=== PATIENT | female | born 1990 | race Caucasian/White ===

== ENCOUNTER 2018-08-29 03:06 | Inpatient (IN) ==
[2018-08-29] MEDS ORDERED: D5 NS 1000 ML 1,000 ML IV ONE (03:08)
[2018-08-29] MEDS ORDERED: D5 1/2 NS 1000 ML 1,000 ML IV SCH ×2 (03:08→04:00)
[2018-08-29] MEDS ORDERED: NUBAIN INJ 10 ONE (03:29)
[2018-08-29] MEDS ORDERED: NUBAIN INJ 10 IVP ONE (03:29)
[2018-08-29 03:30] LABS: BASOPHILS # (AUTO) 0.2 X10^3/uL (0.0-0.1); BASOPHILS % (AUTO) 1.2 % (0.2-1.0); EOSINOPHILS # (AUTO) 0.2 x10^3/uL (0.0-0.2); EOSINOPHILS % (AUTO) 1.2 % (0.9-2.9); HEMATOCRIT 38.5 % (36.0-47.0); HEMOGLOBIN 13.3 g/dL (12.0-16.0); LYMPHOCYTES # (AUTO) 3.5 X10^3/uL (1.3-2.9); LYMPHOCYTES % (AUTO) 19.2 % (21.0-51.0); MEAN CORPUSCULAR HEMOGLOBIN 31.9 pg (27.0-34.0); MEAN CORPUSCULAR HGB CONC 34.6 g/dL (33.0-35.0); MEAN CORPUSCULAR VOLUME 92.3 fL (80.0-100.0); MEAN PLATELET VOLUME 7.3 fL (7.4-11.0); MONOCYTES # (AUTO) 1.6 x10^3/uL (0.3-0.8); MONOCYTES % (AUTO) 9.1 % (0.0-13.0); NEUTROPHILS # (AUTO) 12.5 x10^3/uL (2.2-4.8); NEUTROPHILS % (AUTO) 69.3 % (42.0-75.0); PLATELET COUNT 385 X10^3/uL (150.0-450.0); RED BLOOD COUNT 4.17 X10^6/uL (3.5-5.4); RED CELL DISTRIBUTION WIDTH 13.1 % (11.6-16.5); WHITE BLOOD COUNT 18.1 X10^3/uL (3.6-10.0)
[2018-08-29 03:31] LABS: BLOOD UREA NITROGEN 5 mg/dL (7-18); CALCIUM 8.2 mg/dL (8.5-10.1); CARBON DIOXIDE 20.3 mmol/L (21-32); CHLORIDE 104 mmol/L (98-107); CREATININE 0.59 mg/dL (0.55-1.02); SODIUM 136 mmol/L (136-145); eGFR NON BLACK RACES > 60 (>60)
[2018-08-29 03:45] LABS: AMNISURE ROM TEST NO MEMBRANES RUPTURE (NO RUPTURE)
[2018-08-29] MEDS ORDERED: LR 1000 ML IV 1,000 ML IV ONE (03:46)
[2018-08-29] MEDS ORDERED: XYLOCAINE 1 % (PLAIN) ONE (03:46)
[2018-08-29] MEDS ORDERED: FENTANYL INJ 100 mcg ONE (03:46)
[2018-08-29] MEDS ORDERED: ADRENALINE CHL INJ ONE (03:47)
[2018-08-29] MEDS ORDERED: NAROPIN EPIDURAL 0.2% + FENTANYL 90MCG 60 ML EPI ONE (03:47)
[2018-08-29] MEDS ORDERED: D5 1/2 NS 1L W PITOCIN 20 UNITS/L 20 UNITS/1,000 ML BAG IV ONE (03:47)
[2018-08-29] MEDS ORDERED: PITOCIN ONE (03:47)
[2018-08-29] MEDS ORDERED: PHENERGAN INJ 25 MG IV PRN ×2 (03:51→06:13)
[2018-08-29] MEDS ORDERED: D5LR 1L W PITOCIN 10 UNITS/L 10 UNITS/1,000 ML BAG IV PRN (03:51)
[2018-08-29] MEDS ORDERED: NUBAIN INJ 200 MG VIAL MULTIDOSE IVP PRN (03:51)
[2018-08-29] MEDS ORDERED: REGLAN INJ 10 MG VIAL IVP PRN (03:51)
[2018-08-29] MEDS ORDERED: NS 100 ML IV 100 ML IV ONE (03:55)
[2018-08-29] MEDS ORDERED: AMPICILLIN VIAL 2 GRAM ONE (03:56)
[2018-08-29] MEDS ORDERED: AMPICILLIN VIAL 2 GRAM 2 G in NS 100 ML IV + SPIKE MINIBAG* 100 ML IV SCH (04:00)
[2018-08-29 04:03] VITALS: BMI 25.0
[2018-08-29] MEDS: D5 1/2 NS 1000 ML 1,000 ML with PITOCIN 20 UNITS IV SCH ×6 (05:48→22:18)
[2018-08-29 06:07] LABS: BILIRUBIN,URINE NEGATIVE (NEGATIVE); BLOOD/HEMOGLOBIN,URINE 1+ (NEGATIVE); GLUCOSE, URINE NEGATIVE (NEGATIVE); KETONES,URINE 2+ (NEGATIVE); LEUKOCYTE ESTERASE ,URINE 1+ (NEGATIVE); NITRITES,URINE NEGATIVE (NEGATIVE); PH,URINE 6.5 (5.0 - 8.0); PROTEIN,URINE 2+ (NEGATIVE); UROBILINOGEN,URINE NORMAL (NORMAL)
[2018-08-29 06:23] LABS: APPEARANCE,URINE CLEAR (CLEAR); BACTERIA,URINE TRACE /HPF (NEGATIVE); COLOR,URINE YELLOW (YELLOW); MUCUS,URINE MANY /HPF (NEGATIVE); SQUAMOUS EPITHELIAL CELL,UR MODERATE /HPF (NEGATIVE)
--- NOTE | 2018-08-29 07:09 | DR.OB ---
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 AROM with clear fluid. Head delivered over intact perineum. Nose and mouth bulb suctioned. No nuchal cord. Body delivered over intact perineum. Cord clamped x 2 and cut. handed to attendant. Cord sent for gases. Placenta delivered spontaneously / intact / 3 vessel cord. No CVX / vaginal / perineal tear. Viable male infant, VTX/OA, wt=4'14" and 9/9, stable to NBN. Mother stable to RR. DJI=[id number].
[2018-08-29] MEDS ORDERED: AMPICILLIN VIAL 1 GRAM 1 G in NS 50 ML IV + SPIKE MINIBAG* 50 ML IV SCH (08:00)
[2018-08-29] MEDS ORDERED: ADACEL or BOOSTRIX TDaP VACCINE IM ONE (08:15)
[2018-08-29] MEDS ORDERED: TUCKS MEDICATED PAD EXT PRN (08:15)
[2018-08-29] MEDS ORDERED: DERMOPLAST SPRAY TOP PRN (08:15)
[2018-08-29] MEDS ORDERED: AMBIEN PO PRN (08:15)
[2018-08-29] MEDS ORDERED: MILK OF MAGNESIA PO PRN (08:15)
[2018-08-29] MEDS: PRENATAL PLUS PO SCH (09:17)
[2018-08-29] MEDS: ZANTAC PO SCH ×2 (09:17→22:16)
[2018-08-29] MEDS: MOTRIN TAB 800 MG PO PRN (13:13)
[2018-08-29] MEDS ORDERED: TYLENOL 325 MG TAB PO PRN (20:13)
[2018-08-30 05:26] LABS: HEMATOCRIT 35.2 % (36.0-47.0)
[2018-08-30] MEDS: MOTRIN TAB 800 MG PO PRN (05:36)
[2018-08-30] MEDS: ZANTAC PO SCH ×2 (08:42→20:38)
[2018-08-30] MEDS: PRENATAL PLUS PO SCH (08:42)
[2018-08-30] MEDS ORDERED: REGLAN INJ 10 MG VIAL IVP PRN (14:19)
[2018-08-30] MEDS ORDERED: MOTRIN TAB 800 MG PO PRN (14:20)
[2018-08-30] MEDS ORDERED: DERMOPLAST SPRAY TOP PRN (14:20)
[2018-08-30] MEDS ORDERED: PHENERGAN INJ 25 MG IV PRN (14:20)
[2018-08-30] MEDS ORDERED: TUCKS MEDICATED PAD EXT PRN (14:21)
[2018-08-30] MEDS ORDERED: AMBIEN PO PRN (14:21)
[2018-08-30] MEDS ORDERED: MILK OF MAGNESIA PO PRN (14:21)
[2018-08-30] MEDS ORDERED: TYLENOL 325 MG TAB PO PRN (14:21)
[2018-08-31] MEDS ORDERED: DEPO-PROVERA CONTRACEPTIVE INJ IM ONE (06:55)
[2018-08-31] MEDS: ZANTAC PO SCH (08:42)
[2018-08-31] MEDS ORDERED: PRENATAL PLUS PO SCH (09:00)
[2018-08-31 10:36] VITALS: BP 104/57
== END 2018-08-31 11:11 | disposition home or self-care (01) | DRG 807 ==
LOC: ER 03:06 → LD 03:26 → MED/SURG 07:21
PROVIDERS: ADMIT Specialist; ATTEND Specialist
CPT/HCPCS: 36415; 59409; 80048; 80307; 81001; 84112; 85014; 85018; 85025; 86592; 86850; 86900; 86901; 90715; 96365; A4222; S0197; G0434; J0171; J0290; J1050; J2300; J2590; J3010; J3490; J7042; J7050; J7120; S5010

== ENCOUNTER 2019-01-30 02:56 | Inpatient (IN) ==
[2019-01-30 03:13] VITALS: BMI 20.9
[2019-01-30] MEDS ORDERED: TORADOL 60 MG VIAL IM ONE (03:31)
[2019-01-30] MEDS ORDERED: LEVSIN/MAALOX/LIDOC VISC PO ONE (03:31)
[2019-01-30] MEDS ORDERED: ZANTAC PO ONE (03:31)
[2019-01-30] MEDS ORDERED: TORADOL 60 MG VIAL ONE (03:36)
[2019-01-30] MEDS ORDERED: LEVSIN/MAALOX/LIDOC VISC ONE (03:37)
[2019-01-30] MEDS ORDERED: ZANTAC ONE (03:37)
[2019-01-30 03:45] LABS: BILIRUBIN,URINE NEGATIVE (NEGATIVE); BLOOD/HEMOGLOBIN,URINE NEGATIVE (NEGATIVE); GLUCOSE, URINE NEGATIVE (NEGATIVE); KETONES,URINE 2+ (NEGATIVE); LEUKOCYTE ESTERASE ,URINE 1+ (NEGATIVE); NITRITES,URINE NEGATIVE (NEGATIVE); PROTEIN,URINE NEGATIVE (NEGATIVE); UROBILINOGEN,URINE NORMAL (NORMAL)
[2019-01-30 03:49] LABS: APPEARANCE,URINE CLEAR (CLEAR); COLOR,URINE YELLOW (YELLOW)
[2019-01-30 03:49] LABS: BASOPHILS # (AUTO) 0.1 X10^3/uL (0.0-0.1); BASOPHILS % (AUTO) 0.3 % (0.2-1.0); EOSINOPHILS % (AUTO) 0.2 % (0.9-2.9); HEMATOCRIT 43.8 % (36.0-47.0); HEMOGLOBIN 14.9 g/dL (12.0-16.0); LYMPHOCYTES # (AUTO) 1.6 X10^3/uL (1.3-2.9); MEAN CORPUSCULAR HEMOGLOBIN 31.3 pg (27.0-34.0); MEAN CORPUSCULAR HGB CONC 33.9 g/dL (33.0-35.0); MEAN CORPUSCULAR VOLUME 92.3 fL (80.0-100.0); MEAN PLATELET VOLUME 7.5 fL (7.4-11.0); MONOCYTES # (AUTO) 0.9 x10^3/uL (0.3-0.8); MONOCYTES % (AUTO) 4.6 % (0.0-13.0); NEUTROPHILS # (AUTO) 17.1 x10^3/uL (2.2-4.8); NEUTROPHILS % (AUTO) 86.9 % (42.0-75.0); PLATELET COUNT 279 X10^3/uL (150.0-450.0); RED BLOOD COUNT 4.75 X10^6/uL (3.5-5.4); RED CELL DISTRIBUTION WIDTH 13.5 % (11.6-16.5); WHITE BLOOD COUNT 19.7 X10^3/uL (3.6-10.0)
[2019-01-30 03:50] LABS: BACTERIA,URINE NEGATIVE /HPF (NEGATIVE); RBC,URINE NONE SEEN /HPF (NONE SEEN); SQUAMOUS EPITHELIAL CELL,UR RARE /HPF (NEGATIVE)
[2019-01-30 03:53] LABS: AMYLASE 40 Units/L (25-115); LIPASE 78 Units/L (73-393)
--- NOTE | 2019-01-30 03:53 | ED.ABDFE ---
HPI Time Seen Time Seen by Provider: 01/30/19 03:22 PCP Primary Care Physician: UTE HPI Comment HPI Comment: 29YR OLD WHITE FEMALE WOKE UP 22:00 PM LAST NIGHT WITH SEVERE ABDOMINAL PAIN GOING INTO HER CHEST WITH NO ASSOCIATED SYMPTOMS. SHE TOOK LAXITIVE SUPP WITH BPM BUT NO RELIEF IN PAIN. SHE THOUGHT SHE MAY BE HAVING KIDNEY INFECTION. AFTER SEVERAL HOURS OF PAIN, SHE CAME TO ED 03:00AM TODAY. SHE DENIES FEVER, NAUSEA, VOMITING OR DIARRHEA OR CONSTIPATION. SHE 10/10 SEVERE STABBING PAIN. Complaint Doctors Chief Complaint Comments: ABDOMINAL PAIN Chief Complaint:: PT STATES" I WOKE UP WITH THIS PAIN IN MY STOMACH AND CHEST I THOUGHT IT WAS GAS, OR I WAS CONSTIPATED I TOOK A SUPPOSITORY I USED THE BATHROOM BUT THE PAIN IS STILL ALL OVER MY ABDOMEN AND IN MY CHEST" Reviewed Nurses Notes Review: Yes Source History Provided: Patient Mode of arrival Mode of Arrival: Ambulatory Timing Onset of Chief Complaint: 01/29/19 Came on: Suddenly Duration Since Onset: Constant Duration: Hours Location Location: Diffuse Severity Severity: Severe Quality Quality: Burning and Sharp Context History of: Abdominal surgery Modifying factors Worsening Factors: Position Improving Factors: Lying Still Associated signs and symptoms Associated Signs and Symptoms: None PMH PMH Past Medical History: Yes Past Surgical History: Yes Surgical History: Appendectomy, [employer] Surgery, Hysterectomy and Tonsillectomy Family History History of Family Medical Conditions: Yes Family Medical History: Hypertension Social History Does patient currently use any type of tobacco product: Yes Have you used tobacco products in the last 12 months: Yes Type of Tobacco Use: Cigarettes Does any household member use tobacco: Yes Alcohol Use: None Do you use any recreational Drugs:: No Lives With: Family Lives Where: Home infectious screening In the last 2 months have you had wt loss of >10#?: NO Have you had fever, night sweats or hemotysis?: No Have you traveled outside the country in the last 6 months?: No Isolation: Standard ROS Review of Systems Constitutional: No Symptoms Reported; negative Fever Eyes: No Symptoms Reported; negative Eye Pain, Blurred Vision, Discharge and Photophobia ENTM: negative Ear Pain, Nose Discharge, Nose Congestion and Throat Pain Respiratoy: No Symptoms Reported; negative Productive Cough, Non-Productive Cough, Short of Breath and Wheezing Cardiovascular: Chest Pain; negative Edema, Palpitations and Syncope Gastrointestinal/Abdominal: Abdominal Pain; negative Constipation, Diarrhea, Nausea and Vomiting Genitourinary: No Symptoms Reported; negative Discharge, Dysuria, Frequency, Hematuria and Pain Neurological: No Symptoms Reported; negative Anxiety, Headache, Weakness and Dizziness Musculoskeletal: No Symptoms Reported Integumentary: No Symptoms Reported; negative Dryness Hematologic/Lymphatic: negative Easy Bleeding and Easy Bruising Endocrine: No Symptoms Reported Psychiatric: negative No Symptoms Reported All Other Systems: Reviewed and Negative PE Vital Signs Vitals: Temperature 98.2 F Pulse Rate [Right] 66 Pulse Rate 97 Respiratory Rate 16 Blood Pressure [Right Arm] 99/61 Blood Pressure [Left Arm] 96/53 Blood Pressure 107/62 O2 Sat by Pulse Oximetry 96 General Limitations: No Limitations General Appearance: Alert and In No Apparent Distress Head Head Exam: Normal Inspection, Atraumatic and Normocephalic Eyes Eye exam: Normal Appearance, PERRL and EOMI; negative Scleral Icterus and Conjunctival Injection ENT ENT Exam: Normal Oropharynx, Normal External Ear Exam, Mucous Membranes Moist and TM's Normal Bilaterally Neck Neck Exam: Normal Inspection, Full ROM and Trachea Midline; negative Tenderness, Meningismus and Lymphadenopathy Chest Chest Inspection: Normal Inspection and Symmetric Chest Wall Rise Respiratory Respiratory Exam: Normal Lung Sounds Bilat Respiratory Exam: Bilateral: Clear to Auscultation Cardiovascular Cardiovascular Exam: Regular Rate and Normal Rhythm Abdominal Exam Abdominal Exam: Normal Bowel Sounds, Soft and Tenderness Abdominal Tenderness: Diffuse and Moderate Rectal Rectal Exam: Deferred Back Back Exam: Normal Inspection; negative Tenderness Extremeties Extremities Exam: Normal Inspection and Normal Capillary Refill; negative Tenderness and Edema External Exam: Female: Deferred : Speculum Exam (Female): Deferred : Bimanual Exam (female): Deferred Neurologic Neurological Exam: Alert, Oriented X3 and CN II-XII Intact; negative Motor Sensory Deficit Psychiatric Psychiatric Exam: Normal Affect and Normal Mood Skin Skin Exam: Warm, Dry, Intact and Normal Color MDM Differential Diagnosis Differential Diagnosis- Considerations may include:: Bowel Obstruction, Cholcystitis, Cholelethiasis, Gastritus/PUD, Pancreatitis, Urinary tract infection and Urolithiasis COURSE Treatment Treatment: SEE ORDERS. IM TORADOL AND PO ZANTAC AND GI COCTAIL, PAIN SLIGHTLY IMPROVE. IV NS AND IV FLAGYL IN ED. Consultation Consultation Comments: DISCUSS PATIENT WITH DR. LOZANO. HE IS AVAILABLE FOR CONSULT. DR. ANGELA ACCEPTED PATIENT FOR ADMIT. Education/Counseling Education/Counseling: Patient Educated On: Diagnosis ROR Labs Reviewed Laboratory Results Reviewed?: Yes Result Diagrams: 01/30/19 03:40 01/30/19 03:40 Laboratory: WBC 19.7 X10^3/uL (3.6-10.0) H 01/30/19 03:40 RBC 4.75 X10^6/uL (3.5-5.4) 01/30/19 03:40 Hgb 14.9 g/dL (12.0-16.0) 01/30/19 03:40 Hct 43.8 % (36.0-47.0) 01/30/19 03:40 MCV 92.3 fL (80.0-100.0) 01/30/19 03:40 MCH 31.3 pg (27.0-34.0) 01/30/19 03:40 MCHC 33.9 g/dL (33.0-35.0) 01/30/19 03:40 RDW 13.5 % (11.6-16.5) 01/30/19 03:40 Plt Count 279 X10^3/uL (150.0-450.0) 01/30/19 03:40 MPV 7.5 fL (7.4-11.0) 01/30/19 03:40 Neut % (Auto) 86.9 % (42.0-75.0) H 01/30/19 03:40 Lymph % (Auto) 8.0 % (21.0-51.0) L 01/30/19 03:40 [place] % (Auto) 4.6 % (0.0-13.0) 01/30/19 03:40 Eos % (Auto) 0.2 % (0.9-2.9) L 01/30/19 03:40 Baso % (Auto) 0.3 % (0.2-1.0) 01/30/19 03:40 Neut # (Auto) 17.1 x10^3/uL (2.2-4.8) H 01/30/19 03:40 Lymph # (Auto) 1.6 X10^3/uL (1.3-2.9) 01/30/19 03:40 [place] # (Auto) 0.9 x10^3/uL (0.3-0.8) H 01/30/19 03:40 Eos # (Auto) 0.0 x10^3/uL (0.0-0.2) 01/30/19 03:40 Baso # (Auto) 0.1 X10^3/uL (0.0-0.1) 01/30/19 03:40 Absolute Nucleated RBC 0.0 /100WBC 01/30/19 03:40 Sodium 139 mmol/L (136-145) 01/30/19 03:40 Corrected Sodium TNP 01/30/19 03:40 Potassium 3.9 mmol/L (3.5-5.1) 01/30/19 03:40 Chloride 103 mmol/L (98-107) 01/30/19 03:40 Carbon Dioxide 23.9 mmol/L (21-32) 01/30/19 03:40 BUN 8 mg/dL (7-18) 01/30/19 03:40 Creatinine 0.89 mg/dL (0.55-1.02) 01/30/19 03:40 Est GFR (MDRD) Af Amer > 60 (>60) 01/30/19 03:40 Est GFR (MDRD) Non-Af > 60 (>60) 01/30/19 03:40 Glucose 107 mg/dL (65-99) H 01/30/19 03:40 Calcium 9.3 mg/dL (8.5-10.1) 01/30/19 03:40 Corrected Calcium TNP 01/30/19 03:40 Total Bilirubin 0.30 mg/dL (0.2-1.0) 01/30/19 03:40 AST 15 Units/L (15-37) 01/30/19 03:40 ALT 24 Units/L (12-78) 01/30/19 03:40 Alkaline Phosphatase 77 Units/L (46-116) 01/30/19 03:40 Total Protein 7.3 g/dL (6.4-8.2) 01/30/19 03:40 Albumin 3.8 g/dL (3.4-5.0) 01/30/19 03:40 Globulin 3.5 g/dL (2.5-4.5) 01/30/19 03:40 Albumin/Globulin Ratio 1.1 Ratio (1.1-2.1) 01/30/19 03:40 Amylase 40 Units/L (25-115) 01/30/19 03:40 Lipase 78 Units/L (73-393) 01/30/19 03:40 Specimen Type Clean catch urine 01/30/19 03:33 Urine Color Yellow (YELLOW) 01/30/19 03:33 Urine Appearance Clear (CLEAR) 01/30/19 03:33 Urine pH 6.0 (5.0 - 8.0) 01/30/19 03:33 Ur Specific [place] 1.010 (1.000-1.030) 01/30/19 03:33 Urine Protein Negative (NEGATIVE) 01/30/19 03:33 Urine Glucose (UA) Negative (NEGATIVE) 01/30/19 03:33 Urine Ketones 2+ (NEGATIVE) 01/30/19 03:33 Urine Occult Blood Negative (NEGATIVE) 01/30/19 03:33 Urine Nitrite Negative (NEGATIVE) 01/30/19 03:33 Urine Bilirubin Negative (NEGATIVE) 01/30/19 03:33 Urine Urobilinogen Normal (NORMAL) 01/30/19 03:33 Ur Leukocyte Esterase 1+ (NEGATIVE) 01/30/19 03:33 Urine RBC None seen /HPF (NONE SEEN) 01/30/19 03:33 Urine WBC 0-2 /HPF (NONE SEEN) 01/30/19 03:33 Ur Squamous Epith Cells Rare /HPF (NEGATIVE) 01/30/19 03:33 Urine Bacteria Negative /HPF (NEGATIVE) 01/30/19 03:33 Ur Culture Indicated? No/not indicated 01/30/19 03:33 XRAY XRAY Interpreted by: Radiologist XRAY Findings: SPOKE TO RADIOLOGIST AND REPORT DISCUSS. ALSO DISCUSS REPORT WITH PATIENT.
[2019-01-30 05:15] LABS: ALANINE AMINOTRANSFERASE 24 Units/L (12-78); ALBUMIN 3.8 g/dL (3.4-5.0); ALKALINE PHOSPHATASE 77 Units/L (46-116); ASPARTATE AMINO TRANSFERASE 15 Units/L (15-37); BLOOD UREA NITROGEN 8 mg/dL (7-18); CALCIUM 9.3 mg/dL (8.5-10.1); CARBON DIOXIDE 23.9 mmol/L (21-32); CHLORIDE 103 mmol/L (98-107); CREATININE 0.89 mg/dL (0.55-1.02); SODIUM 139 mmol/L (136-145); TOTAL PROTEIN 7.3 g/dL (6.4-8.2); eGFR NON BLACK RACES > 60 (>60)
--- NOTE | 2019-01-30 05:30 | CT ---
CT abdomen and pelvis without contrast Indication: Abdominal pain. Technique: Helical images through the abdomen and pelvis without contrast. Coronal and sagittal reformats provided. Findings: Limited images through the lower chest shows no acute abnormality. Review of bone windows shows no osseous lesion. Abdomen: There is diffuse free air seen in the anterior abdomen and under the hemidiaphragm. Gas causes of the anuradha hepatis. Vasculature is normal. The stomach shows no convincing acute abnormality. Is the colon shows no acute abnormality. Appendix is absent. Vasculature is normal for noncontrast study. The kidneys shows no hydroureteronephrosis. Pelvis: The urinary bladder and rectum are normal. Uterus is absent. No adnexal region lesions seen. Small moderate free fluid is seen in the pelvis with stranding. Impression: 1. Large amount of free air in the peritoneum, possibly from gastric ulcer or duodenal ulcer perforation. There is free fluid in the pelvis. 2. No other acute abnormality or obvious source for the patient's gas. Perforated viscus is presumed. However, the actual location of the perforation cannot be convincingly demonstrated. THE AVAILABILITY OF THE REPORT AND FINDINGS WERE COMMUNICATED TO Dr. Eubanks by Dr. Fischer on 01/30/2019 Time called 5:30 a.m. Reported By:
[2019-01-30] MEDS ORDERED: NS 1000 ML 1,000 ML ONE (05:39)
[2019-01-30] MEDS ORDERED: NS 1000 ML 1,000 ML IV ONE (05:39)
[2019-01-30] MEDS ORDERED: FLAGYL IV PREMIX 500 MG BAG 500 MG/100 ML BAG IV ONE ×2 (05:47→11:05)
[2019-01-30] MEDS: FLAGYL IV PREMIX 500 MG BAG 500 MG/100 ML BAG IV SCH ×4 (05:49→20:33)
[2019-01-30] MEDS ORDERED: MORPHINE SULFATE INJ 4 MG IVP PRN ×2 (06:57→09:57)
[2019-01-30] MEDS ORDERED: ZOFRAN INJ 4 MG VIAL IVP PRN (06:57)
[2019-01-30] MEDS ORDERED: NS 100 ML IV + SPIKE MINIBAG* 100 ML ONE ×4 (07:30→20:43)
[2019-01-30] MEDS: ZOSYN VIAL 3.375 GRAMS IV SCH ×3 (07:36→21:51)
[2019-01-30] MEDS ORDERED: FENTANYL INJ 250 mcg ONE (10:37)
[2019-01-30] MEDS ORDERED: LR 1000 ML IV 1,000 ML ONE (11:05)
[2019-01-30 11:22] LABS: BILIRUBIN,URINE NEGATIVE (NEGATIVE); BLOOD/HEMOGLOBIN,URINE NEGATIVE (NEGATIVE); GLUCOSE, URINE NEGATIVE (NEGATIVE); KETONES,URINE NEGATIVE (NEGATIVE); LEUKOCYTE ESTERASE ,URINE 1+ (NEGATIVE); NITRITES,URINE NEGATIVE (NEGATIVE); PH,URINE 6.5 (5.0 - 8.0); PROTEIN,URINE NEGATIVE (NEGATIVE); UROBILINOGEN,URINE NORMAL (NORMAL)
[2019-01-30 11:38] LABS: APPEARANCE,URINE CLEAR (CLEAR); BACTERIA,URINE NEGATIVE /HPF (NEGATIVE); COLOR,URINE YELLOW (YELLOW); RBC,URINE NONE SEEN /HPF (NONE SEEN); SQUAMOUS EPITHELIAL CELL,UR FEW /HPF (NEGATIVE)
[2019-01-30] MEDS ORDERED: BACTROBAN TOPICAL OINT ONE (12:02)
[2019-01-30] MEDS ORDERED: DILAUDID INJ ONE (12:28)
[2019-01-30] MEDS: DILAUDID INJ IVP PRN ×4 (12:48→21:51)
[2019-01-30] MEDS: NS 1000 ML 1,000 ML IV SCH ×3 (14:27→21:50)
[2019-01-30] MEDS ORDERED: NORCURON INJ 10 MG VIAL ONE (16:01)
[2019-01-30] MEDS ORDERED: NEOSTIGMINE INJ ONE (16:01)
[2019-01-30] MEDS ORDERED: QUELICIN (OR ANECTINE) ONE (16:01)
[2019-01-30] MEDS ORDERED: DIPRIVAN VIAL ONE (16:01)
[2019-01-30] MEDS ORDERED: ZOFRAN INJ 4 MG VIAL ONE (16:01)
[2019-01-30] MEDS ORDERED: SUPRANE ONE (16:01)
[2019-01-30] MEDS ORDERED: ROBINUL ONE (16:01)
[2019-01-30] MEDS ORDERED: VERSED ONE (16:01)
[2019-01-30] MEDS ORDERED: NS IRRIGATION 1000 ML ONE (16:07)
[2019-01-30] MEDS ORDERED: NS 100 ML IV 0 ML ONE (20:08)
[2019-01-30] MEDS ORDERED: HumuLIN R SUBCUT PRN (21:00)
[2019-01-30] MEDS ORDERED: D50W ABBOJECT SYR IV ONE (21:04)
[2019-01-31] MEDS: DILAUDID INJ IVP PRN ×3 (00:55→07:25)
[2019-01-31] MEDS: FLAGYL IV PREMIX 500 MG BAG 500 MG/100 ML BAG IV SCH ×3 (04:01→22:14)
[2019-01-31] MEDS ORDERED: NS 100 ML IV + SPIKE MINIBAG* 100 ML ONE ×3 (04:16→20:21)
[2019-01-31] MEDS: ZOSYN VIAL 3.375 GRAMS IV SCH ×3 (05:10→22:15)
[2019-01-31] MEDS: NS 1000 ML 1,000 ML IV SCH ×3 (05:10→22:15)
[2019-01-31 05:16] LABS: BASOPHILS % (AUTO) 0.3 % (0.2-1.0); EOSINOPHILS # (AUTO) 0.1 x10^3/uL (0.0-0.2); EOSINOPHILS % (AUTO) 1.1 % (0.9-2.9); HEMATOCRIT 36.5 % (36.0-47.0); LYMPHOCYTES # (AUTO) 1.8 X10^3/uL (1.3-2.9); LYMPHOCYTES % (AUTO) 21.8 % (21.0-51.0); MEAN CORPUSCULAR HEMOGLOBIN 31.6 pg (27.0-34.0); MEAN CORPUSCULAR HGB CONC 33.6 g/dL (33.0-35.0); MEAN CORPUSCULAR VOLUME 93.9 fL (80.0-100.0); MEAN PLATELET VOLUME 8.2 fL (7.4-11.0); MONOCYTES # (AUTO) 0.7 x10^3/uL (0.3-0.8); MONOCYTES % (AUTO) 8.2 % (0.0-13.0); NEUTROPHILS # (AUTO) 5.8 x10^3/uL (2.2-4.8); NEUTROPHILS % (AUTO) 68.6 % (42.0-75.0); PLATELET COUNT 211 X10^3/uL (150.0-450.0); RED BLOOD COUNT 3.89 X10^6/uL (3.5-5.4); RED CELL DISTRIBUTION WIDTH 13.2 % (11.6-16.5); WHITE BLOOD COUNT 8.4 X10^3/uL (3.6-10.0)
[2019-01-31 05:33] LABS: HEMOGLOBIN 12.3 g/dL (12.0-16.0)
[2019-01-31 05:34] LABS: ALANINE AMINOTRANSFERASE 16 Units/L (12-78); ALBUMIN 2.5 g/dL (3.4-5.0); ALKALINE PHOSPHATASE 51 Units/L (46-116); ASPARTATE AMINO TRANSFERASE 11 Units/L (15-37); BLOOD UREA NITROGEN 5 mg/dL (7-18); CARBON DIOXIDE 20.6 mmol/L (21-32); CHLORIDE 108 mmol/L (98-107); COR CA(FOR HYPOALB) 9.2 mg/dL (8.5-10.1); CREATININE 0.78 mg/dL (0.55-1.02); SODIUM 139 mmol/L (136-145); TOTAL PROTEIN 5.2 g/dL (6.4-8.2); eGFR NON BLACK RACES > 60 (>60)
[2019-01-31] MEDS ORDERED: D50W ABBOJECT SYR IV ONE (05:43)
[2019-01-31] MEDS ORDERED: POTASSIUM CHL 40 MEQ/NS 0.45% 500 ML IV PRN (07:27)
[2019-01-31] MEDS ORDERED: POTASSIUM CHL 60 MEQ/NS 0.45% 500 ML IV PRN (07:27)
[2019-01-31] MEDS ORDERED: K-DUR TAB 20 MEQ PO PRN (07:27)
[2019-01-31] MEDS ORDERED: K-RIDER 10 MEQ/NS 100 ML 10 MEQ/100 ML BAG IV PRN (07:27)
[2019-01-31] MEDS ORDERED: MICRO K EXTEN CAP 10 MEQ PO PRN (07:27)
[2019-01-31] MEDS ORDERED: KLOR-CON PO PRN (07:27)
[2019-01-31] MEDS ORDERED: POTASSIUM CHLORIDE LIQ 20 MEQ UDC PO PRN (07:27)
[2019-01-31] MEDS ORDERED: ULTRAM PO PRN (09:32)
[2019-01-31] MEDS ORDERED: MORPHINE SULFATE INJ 2 MG INJ IVP PRN (09:38)
[2019-01-31] MEDS: MAGNESIUM SULFATE 1 GRAM/100 mL PREMIX 1 GM/100 ML BAG IV PRN ×2 (10:02→14:38)
[2019-01-31] MEDS ORDERED: TORADOL 15 MG VIAL ONE (10:59)
[2019-01-31] MEDS: TORADOL 15 MG VIAL IVP PRN ×3 (11:02→22:15)
--- NOTE | 2019-01-31 14:51 | DR.PROGNOT ---
Hospital Progress Notes - Progress Note for Day of: Progress Note Date: 01/31/19 - Chief Complaint Chief Complaint: c/o incisional pain , no nausea or vomiting,. initial culture is no growth . CBC normal as well as CMP . mild drainage in TASIA . afebrile .. - Past Medical Family Social History Past Med/Fam/Surg Hx: No changes since H&P Allergies: Allergies No Known Drug Allergies Allergy (Verified 01/30/19 06:24) - Review Of Systems ROS: No change since H&P - Vital Signs Vital Signs: Temperature 98.2 F Pulse Rate [Right] 52 Pulse Rate 63 Respiratory Rate 18 Blood Pressure [Right Arm] 92/64 Blood Pressure [Left Arm] 107/62 Blood Pressure 130/50 O2 Sat by Pulse Oximetry 96 - Physical Exam Oriented: Normal Eyes: Normal Ear: Normal Nose: Normal Respiratory: Normal Cardiovascular: Normal : Normal GI:Auscultation: Decreased GI:Palpation: Normal GI: Tenderness: Diffuse (diffuse tenderness more around TASIA drain ) Skin: Normal Musculoskeletal: Normal Mood Description: Calm Speech Pattern: Clear, Appropriate - Laboratory and Diagnostics Result Diagrams: 01/31/19 04:25 01/31/19 12:51 Labs: 01/30/19 11:44 Abdomen Gram Stain - Final 01/30/19 11:44 Abdomen - Preliminary Laboratory WBC 8.4 X10^3/uL (3.6-10.0) D 01/31/19 04:25 RBC 3.89 X10^6/uL (3.5-5.4) 01/31/19 04:25 Hgb 12.3 g/dL (12.0-16.0) D 01/31/19 04:25 Hct 36.5 % (36.0-47.0) 01/31/19 04:25 MCV 93.9 fL (80.0-100.0) 01/31/19 04:25 MCH 31.6 pg (27.0-34.0) 01/31/19 04:25 MCHC 33.6 g/dL (33.0-35.0) 01/31/19 04:25 RDW 13.2 % (11.6-16.5) 01/31/19 04:25 Plt Count 211 X10^3/uL (150.0-450.0) 01/31/19 04:25 MPV 8.2 fL (7.4-11.0) 01/31/19 04:25 Neut % (Auto) 68.6 % (42.0-75.0) 01/31/19 04:25 Lymph % (Auto) 21.8 % (21.0-51.0) 01/31/19 04:25 [place] % (Auto) 8.2 % (0.0-13.0) 01/31/19 04:25 Eos % (Auto) 1.1 % (0.9-2.9) 01/31/19 04:25 Baso % (Auto) 0.3 % (0.2-1.0) 01/31/19 04:25 Neut # (Auto) 5.8 x10^3/uL (2.2-4.8) H 01/31/19 04:25 Lymph # (Auto) 1.8 X10^3/uL (1.3-2.9) 01/31/19 04:25 [place] # (Auto) 0.7 x10^3/uL (0.3-0.8) 01/31/19 04:25 Eos # (Auto) 0.1 x10^3/uL (0.0-0.2) 01/31/19 04:25 Baso # (Auto) 0.0 X10^3/uL (0.0-0.1) 01/31/19 04:25 Absolute Nucleated RBC 0.0 /100WBC 01/31/19 04:25 Sodium 139 mmol/L (136-145) 01/31/19 04:25 Corrected Sodium TNP 01/31/19 04:25 Potassium 4.0 mmol/L (3.5-5.1) 01/31/19 12:51 Chloride 108 mmol/L (98-107) H 01/31/19 04:25 Carbon Dioxide 20.6 mmol/L (21-32) L 01/31/19 04:25 BUN 5 mg/dL (7-18) L 01/31/19 04:25 Creatinine 0.78 mg/dL (0.55-1.02) 01/31/19 04:25 Est GFR (MDRD) Af Amer > 60 (>60) 01/31/19 04:25 Est GFR (MDRD) Non-Af > 60 (>60) 01/31/19 04:25 Glucose 66 mg/dL (65-99) 01/31/19 04:25 Calcium 8.0 mg/dL (8.5-10.1) L 01/31/19 04:25 Corrected Calcium 9.2 mg/dL (8.5-10.1) 01/31/19 04:25 Magnesium 1.5 mg/dL (1.7-2.9) L 01/31/19 04:25 Total Bilirubin 0.50 mg/dL (0.2-1.0) 01/31/19 04:25 AST 11 Units/L (15-37) L 01/31/19 04:25 ALT 16 Units/L (12-78) 01/31/19 04:25 Alkaline Phosphatase 51 Units/L (46-116) 01/31/19 04:25 Total Protein 5.2 g/dL (6.4-8.2) L 01/31/19 04:25 Albumin 2.5 g/dL (3.4-5.0) L 01/31/19 04:25 Globulin 2.7 g/dL (2.5-4.5) 01/31/19 04:25 Albumin/Globulin Ratio 0.9 Ratio (1.1-2.1) L 01/31/19 04:25 Amylase 40 Units/L (25-115) 01/30/19 03:40 Lipase 78 Units/L (73-393) 01/30/19 03:40 Specimen Type Catherized urine 01/30/19 10:55 Urine Color Yellow (YELLOW) 01/30/19 10:55 Urine Appearance Clear (CLEAR) 01/30/19 10:55 Urine pH 6.5 (5.0 - 8.0) 01/30/19 10:55 Ur Specific [place] 1.010 (1.000-1.030) 01/30/19 10:55 Urine Protein Negative (NEGATIVE) 01/30/19 10:55 Urine Glucose (UA) Negative (NEGATIVE) 01/30/19 10:55 Urine Ketones Negative (NEGATIVE) 01/30/19 10:55 Urine Occult Blood Negative (NEGATIVE) 01/30/19 10:55 Urine Nitrite Negative (NEGATIVE) 01/30/19 10:55 Urine Bilirubin Negative (NEGATIVE) 01/30/19 10:55 Urine Urobilinogen Normal (NORMAL) 01/30/19 10:55 Ur Leukocyte Esterase 1+ (NEGATIVE) 01/30/19 10:55 Urine RBC None seen /HPF (NONE SEEN) 01/30/19 10:55 Urine WBC 0-2 /HPF (NONE SEEN) 01/30/19 10:55 Ur Squamous Epith Cells Few /HPF (NEGATIVE) 01/30/19 10:55 Urine Bacteria Negative /HPF (NEGATIVE) 01/30/19 10:55 Ur Culture Indicated? No/not indicated 01/30/19 10:55 - Assessment and Plan 1: Post Op diagnostic laparoscopy and drainage of pelvic abscess . to start full liquid diet . same IV ATB . keep TASIA till am
[2019-01-31] MEDS ORDERED: SNACK - Diabetic Appropriate PO SCH (20:00)
[2019-01-31] MEDS ORDERED: NS 100 ML IV 0 ML ONE (20:20)
[2019-01-31] MEDS ORDERED: COLACE CAP 100 MG PO SCH (21:00)
[2019-02-01] MEDS ORDERED: NS 100 ML IV + SPIKE MINIBAG* 100 ML ONE (05:11)
[2019-02-01 05:19] LABS: BASOPHILS % (AUTO) 0.5 % (0.2-1.0); EOSINOPHILS # (AUTO) 0.2 x10^3/uL (0.0-0.2); EOSINOPHILS % (AUTO) 2.9 % (0.9-2.9); HEMATOCRIT 34.1 % (36.0-47.0); HEMOGLOBIN 11.6 g/dL (12.0-16.0); LYMPHOCYTES % (AUTO) 35.6 % (21.0-51.0); MEAN CORPUSCULAR HEMOGLOBIN 31.4 pg (27.0-34.0); MEAN CORPUSCULAR HGB CONC 33.8 g/dL (33.0-35.0); MEAN CORPUSCULAR VOLUME 92.8 fL (80.0-100.0); MONOCYTES # (AUTO) 0.5 x10^3/uL (0.3-0.8); MONOCYTES % (AUTO) 9.2 % (0.0-13.0); NEUTROPHILS # (AUTO) 2.9 x10^3/uL (2.2-4.8); NEUTROPHILS % (AUTO) 51.8 % (42.0-75.0); PLATELET COUNT 205 X10^3/uL (150.0-450.0); RED BLOOD COUNT 3.68 X10^6/uL (3.5-5.4); RED CELL DISTRIBUTION WIDTH 13.2 % (11.6-16.5); WHITE BLOOD COUNT 5.6 X10^3/uL (3.6-10.0)
[2019-02-01 05:28] LABS: ALANINE AMINOTRANSFERASE 14 Units/L (12-78); ALBUMIN 2.2 g/dL (3.4-5.0); ALKALINE PHOSPHATASE 44 Units/L (46-116); ASPARTATE AMINO TRANSFERASE 13 Units/L (15-37); BLOOD UREA NITROGEN 2 mg/dL (7-18); CALCIUM 7.9 mg/dL (8.5-10.1); CARBON DIOXIDE 22.1 mmol/L (21-32); CHLORIDE 110 mmol/L (98-107); COR CA(FOR HYPOALB) 9.3 mg/dL (8.5-10.1); MAGNESIUM 1.7 mg/dL (1.7-2.9); SODIUM 142 mmol/L (136-145); TOTAL PROTEIN 4.8 g/dL (6.4-8.2); eGFR NON BLACK RACES > 60 (>60)
[2019-02-01] MEDS: FLAGYL IV PREMIX 500 MG BAG 500 MG/100 ML BAG IV SCH (05:45)
[2019-02-01] MEDS: NS 1000 ML 1,000 ML IV SCH (06:21)
[2019-02-01] MEDS: ZOSYN VIAL 3.375 GRAMS IV SCH (06:22)
[2019-02-01] MEDS: TORADOL 15 MG VIAL IVP PRN (07:24)
[2019-02-01 08:14] VITALS: BP 124/73
== END 2019-02-01 11:10 | disposition home or self-care (01) | DRG 395 ==
LOC: ER 02:59 → MED/SURG 06:52
PROVIDERS: ADMIT Obstetrics & Gynecology Obstetrics; ATTEND Obstetrics & Gynecology Obstetrics
PROC: DIAGLAP (2019-01-30 10:30)
DX: N99.4 Postprocedural pelvic peritoneal adhesions; D72.828 Other elevated white blood cell count; Z90.710 Acquired absence of both cervix and uterus; R10.84 Generalized abdominal pain; R10.2 Pelvic and perineal pain; R07.89 Other chest pain
CPT/HCPCS: 36415; 74176; 80053; 81001; 82150; 83690; 83735; 84132; 85025; 87070; 87075; 87205; 94760; 96365; 96367; 96372; 96374; 99284; A4222; S0030; J0330; J1170; J1885; J2250; J2270; J2405; J2543; J2704; J2710; J3010; J3475; J3490; J7030; J7050; J7120